=== PATIENT | female | born 1955 | race Caucasian/White ===

== ENCOUNTER 2017-01-03 21:22 | Emergency (ER) | payer OTHER ==
[~2017-01-03] VITALS: Ht 162.6 cm; Wt 83.7 kg
[~2017-01-03 21:22] MED LIST: ABILIFY10 MG PO; ALBUTEROL SULF8.5 GM IH; ALBUTEROL17 GM IH; ALBUTEROL2.5 MG/3 M IH; AMLODIPINE BESYLATE PO; AMOXICILLIN875 MG PO; ASPIR-LOW81 MG PO; AZITHROMYCIN250 MG PO; Advair 100/50 Diskus IH; Advair 250/50 Diskus IH; Ambien PO; BUPROPION XL300 MG PO; BUTALB-APAP-CA1 EACH PO; CARAFATE1 GM PO; CELEBREX200 MG PO; CELECOXIB200 MG PO; CEPHALEXIN500 MG PO; CETIRIZINE HCL10 M2 PO; CETIRIZINE HCL10 MG PO; CLONAZEPAM1 MG PO; CLONAZEPAM2 MG PO; COMBIVENT RESPIM4 GM IH; CORICIDIN HBP1 EAC2 PO; COUMADIN1 MG PO; COUMADIN5 MG PO; CYCLOBENZAPRINE10 M1 PO; CYCLOBENZAPRINE10 MG PO; DEPAKOTE250 MG PO; DESYREL100 MG PO; DOCUSATE SODIU100 MG PO; Desyrel PO; EC-NAPROSYN500 MG PO; ENDOCET 5-3251 EACH PO; FIORICET 50-301 EACH PO; FIORICET,ESG1 TABLET PO; FLOVENT 11120 INHALA IH; FLOVENT 22120 INHALA IH; FLOVENT DISKUS1 DIS2 IH; FUROSEMIDE20 MG PO; FUROSEMIDE40 MG PO; Flexeril PO; Flonase BOTH NARES; Flovent Diskus 50 mc IH; Furosemide PO; GABAPENTIN100 MG PO; GABAPENTIN600 MG PO; GLUCOPHAGE500 M1 PO; GLUCOPHAGE500 MG PO; HYDROCHLOROTHIA25 MG PO; HYDROCODON-ACE1 EACH PO; HYDROCODONE-AP1 EAC8 PO; HYDROXYZINE HCL25 MG PO; IBUPROFEN M200 MG PO; IRON325 M1 PO; LASIX40 MG PO; LATUDA80 MG PO; LEVOTHROID100 MCG PO; LEVOTHYROXINE100 MCG PO; LEVOTHYROXINE75 MCG PO; LEXAPRO10 MG PO; LEXAPRO20 MG PO; LISINOPRIL10 MG PO; LISINOPRIL20 MG PO; LORAZEPAM0.5 MG PO; LYRICA75 MG PO; Levaquin PO; Levothroid,Synthroid PO; Levothyroxine Sodium PO; Lexapro PO; MAXALT10 MG PO; METFORMIN HCL500 MG PO; MONTELUKAST SOD10 MG PO; MOTRIN800 MG PO; MYRBETRIQ25 MG PO; MYRBETRIQ50 MG PO; NAPROSYN-EC500 MG PO; NAPROSYN500 MG PO; NAPROXEN500 M1 PO; NAPROXEN500 M2 PO; NEURONTIN100 MG PO; NORVASC5 MG PO; OMEPRAZOLE20 M3 PO; OMEPRAZOLE20 MG PO; OXAYDO5 MG PO; OXCARBAZEPINE300 MG PO; OXCARBAZEPINE600 MG PO; OXYBUTYNIN CHLOR5 MG PO; OXYCONTIN10 MG PO; PEPCID20 MG PO; PREDNISONE20 MG PO; PRILOSEC20 MG PO; PRINIVIL40 MG PO; PROVENTIL,2.5 MG/0.5 IH; PROVENTIL,2.5 MG/3 M IH; PriLOSEC PO; Proventil,Ventolin H IH; QUETIAPINE FUM100 MG PO; QUETIAPINE FUM400 MG PO; QUETIAPINE FUMA25 MG PO; RANITIDINE HCL150 M1 PO; REGLAN10 MG PO; SANCTURA XR60 MG PO; SEROQUEL XR150 MG PO; SEROQUEL100 MG PO; SEROQUEL400 MG PO; SEROQUEL50 MG PO; SEROquel PO; SIMVASTATIN40 MG PO; Simvastatin PO; TOPIRAMATE25 MG PO; TRAMADOL HCL50 MG PO; TRAZODONE HCL150 MG PO; TRILEPTAL300 MG PO; TRILEPTAL600 MG PO; TYLENOL REGULA325 MG PO; Trileptal PO; ULTRAM50 MG PO; VENTOLIN HFA18 GM IH; VITAMIN B-12500 MC4 PO; Vicodin,Norco 5/325 PO; Vitamin B-12 PO; ZANTAC150 M1 PO; ZESTRIL,PRINIVI40 M1 PO; ZITHROMAX Z-PA250 MG PO; ZOCOR40 MG PO; ZOFRAN ODT4 MG PO; ZOFRAN4 MG PO; ZOLPIDEM TARTRA10 MG PO; ZYRTEC10 M1 PO; ZYRTEC10 M2 PO; ZYRTEC10 M3 PO; ZyrTEC PO; predniSONE PO
[2017-01-04 00:25] VITALS: BP 103/71
== END 2017-01-04 00:26 | disposition home or self-care (01) ==
LOC: EME 21:22 → RME 21:22
DX: G43.909 Migraine, unspecified, not intractable, without status migrainosus (principal)
CPT/HCPCS: 99281; 99284; J1885

== ENCOUNTER 2017-06-07 12:15 | Emergency (ER) | payer OTHER ==
[~2017-06-07] VITALS: Ht 162.6 cm; Wt 83.2 kg
[2017-06-07] MEDS ORDERED: PREDNISONE20 MG PO (14:04)
[2017-06-07] MEDS ORDERED: VENTOLIN HFA18 GM IH (14:04)
[2017-06-07 14:10] VITALS: BP 176/86
== END 2017-06-07 14:11 | disposition home or self-care (01) ==
LOC: EME 12:15
DX: J45.901 Unspecified asthma with (acute) exacerbation (principal); I10 Essential (primary) hypertension; E11.9 Type 2 diabetes mellitus without complications; K21.9 Gastro-esophageal reflux disease without esophagitis; E78.5 Hyperlipidemia, unspecified; E03.9 Hypothyroidism, unspecified; F31.9 Bipolar disorder, unspecified; Z79.84 Long term (current) use of oral hypoglycemic drugs; Z87.891 Personal history of nicotine dependence
CPT/HCPCS: 71020; 93005; 94640; 99281; 99284; J7512

== ENCOUNTER 2017-08-09 16:47 | Emergency (ER) | payer OTHER ==
[~2017-08-09] VITALS: Ht 162.6 cm; Wt 82.1 kg
[2017-08-09] MEDS ORDERED: NORCO 5/3251 TABLET PO (19:15)
[2017-08-09 19:53] VITALS: BP 119/95
== END 2017-08-09 19:54 | disposition home or self-care (01) ==
LOC: EME 16:47
PROC: 2W3RX1Z Immobilization of Left Lower Leg using Splint (ICD-10-PCS; principal; 2017-08-09)
DX: S82.892A Other fracture of left lower leg, initial encounter for closed fracture (principal); W01.0XXA Fall on same level from slipping, tripping and stumbling without subsequent striking against object, initial encounter; Y93.01 Activity, walking, marching and hiking; Z91.040 Latex allergy status; Z88.8 Allergy status to other drugs, medicaments and biological substances
CPT/HCPCS: 73610; 99281; 99284

== ENCOUNTER 2018-03-29 20:56 | Emergency (ER) | payer OTHER ==
[~2018-03-29] VITALS: Ht 162.6 cm; Wt 84.7 kg
[~2018-03-29 20:56] MED LIST changes: +NORCO 5/3251 TABLET PO
[2018-03-29] MEDS ORDERED: FIORICET 50-301 EAC1 PO (23:05)
[2018-03-29 23:20] VITALS: BP 138/100
== END 2018-03-29 23:21 | disposition home or self-care (01) ==
LOC: EME 20:56 → EXP 20:56
DX: R51 Headache (principal); E11.40 Type 2 diabetes mellitus with diabetic neuropathy, unspecified; I10 Essential (primary) hypertension; K21.9 Gastro-esophageal reflux disease without esophagitis; E78.5 Hyperlipidemia, unspecified; E03.9 Hypothyroidism, unspecified; J45.909 Unspecified asthma, uncomplicated; G62.9 Polyneuropathy, unspecified; F41.9 Anxiety disorder, unspecified; F32.9 Major depressive disorder, single episode, unspecified; F31.9 Bipolar disorder, unspecified; F17.200 Nicotine dependence, unspecified, uncomplicated; Z79.84 Long term (current) use of oral hypoglycemic drugs; Z86.69 Personal history of other diseases of the nervous system and sense organs; Z90.710 Acquired absence of both cervix and uterus; Z90.49 Acquired absence of other specified parts of digestive tract; Z91.041 Radiographic dye allergy status; Z88.5 Allergy status to narcotic agent; Z91.048 Other nonmedicinal substance allergy status
CPT/HCPCS: 99281; 99284; J1200; J1885; J2765; J7030